=== PATIENT | female | born 1980 | race African-American/Black ===

== ENCOUNTER 2018-10-21 00:23 | Emergency (ER) | payer SELFPAY ==
[~2018-10-21] VITALS: Ht 172.7 cm; Wt 100.0 kg
[~2018-10-21 00:23] MED LIST: SERT50TA12 PO
[2018-10-21] MEDS ORDERED: DIPH25CA85 PO (00:56)
[2018-10-21] MEDS ORDERED: FAMO20TA32 PO (00:56)
[2018-10-21] MEDS ORDERED: PRED-572 PO (00:56)
[2018-10-21 02:49] VITALS: BP 138/88
== END 2018-10-21 03:12 | disposition home or self-care (01) ==
LOC: EDBD → EMS 00:24
DX: L50.9 Urticaria, unspecified (principal); J45.909 Unspecified asthma, uncomplicated; Z91.040 Latex allergy status

== ENCOUNTER 2019-01-30 13:34 | Emergency (ER) | payer OTHER ==
[~2019-01-30] VITALS: Ht 172.7 cm; Wt 109.1 kg
[~2019-01-30 13:34] MED LIST changes: +DIPH25CA85 PO; +FAMO20TA32 PO; +PRED-572 PO
[2019-01-30] MEDS ORDERED: KETOROLAC TROMETHAMINE 30 MG/ML VIAL IVP ONE (14:30)
[2019-01-30 15:32] LABS: BASOPHILS % (AUTO) 0.8 % (0.0-2.0); EOSINOPHILS % (AUTO) 1.9 % (1.0-6.0); HEMATOCRIT 34.8 % (36-46); HEMOGLOBIN 11.3 g/dL (12.0-16.0); LYMPHOCYTES % (AUTO) 31.1 % (22.0-44.0); MEAN CORPUSCULAR HEMOGLOBIN 26.7 pg (26.0-34.0); MEAN CORPUSCULAR HGB CONC 32.4 G/dL (31.0-37.0); MEAN CORPUSCULAR VOLUME 82 fL (80-100); MONOCYTES # (AUTO) 0.8 K/uL (0.1-1.0); MONOCYTES % (AUTO) 6.2 % (2.0-9.0); NEUTROPHILS # (AUTO) 7.8 K/uL (1.8-7.7); PLATELET COUNT (AUTO) 471 K/uL (150-450); RED BLOOD CELL COUNT(AUTO) 4.22 MIL/uL (4.00-5.20); RED CELL DISTRIBUTION WIDTH 13.1 % (11.5-14.5)
[2019-01-30 15:47] LABS: ANION GAP 8 mmol/L (8-16); CALCIUM, TOTAL 9.4 mg/dL (8.8-10.5); CARBON DIOXIDE 26 mmol/L (22-29); CHLORIDE 102 mmol/L (98-107); CREATININE 0.84 mg/dL (0.60-1.30); GLOMERULAR FILTR. RATE CALC > 60 mL/min (>60); GLUCOSE,RANDOM 77 mg/dL (70-110); POTASSIUM 4.1 mmol/L (3.5-5.1); SODIUM SERUM 136 mmol/L (136-145); UREA NITROGEN, BLOOD 7 mg/dL (7-18)
[2019-01-30 16:00] LABS: ALANINE AMINOTRANSFERASE 20 U/L (12-78); ALBUMIN 3.6 g/dL (3.4-5.0); ALKALINE PHOSPHATASE 68 U/L (46-116); ASPARTATE AMINOTRANSFERASE 14 U/L (15-37); BILIRUBIN,TOTAL 0.3 mg/dL (0.1-1.0); CREATINE KINASE, TOTAL ONLY 63 U/L (26-192); HCG,QUANTITATIVE 1 mIU/mL (0-6); TOTAL PROTEIN, SERUM 8.2 g/dL (6.4-8.2)
[2019-01-30] MEDS ORDERED: KETOROLAC TROMETHAMINE 30 MG/ML VIAL IM ONE (16:30)
[2019-01-30 17:18] VITALS: BP 121/74
== END 2019-01-30 17:23 | disposition home or self-care (01) ==
LOC: EMS 13:39
DX: R07.89 Other chest pain (principal); J45.909 Unspecified asthma, uncomplicated; Z79.899 Other long term (current) drug therapy; Z91.040 Latex allergy status
CPT/HCPCS: 36415; 71045; 80053; 82550; 84484; 84702; 85025; 93005; 96372; 99284; J1885

== ENCOUNTER 2022-08-26 03:35 | Emergency (ER) | payer OTHER ==
[~2022-08-26] VITALS: Ht 172.7 cm; Wt 98.6 kg
[~2022-08-26 03:35] MED LIST changes: +SERT-158 PO; -SERT50TA12 PO
[2022-08-26] MEDS ORDERED: HYDR-4584 PO (03:56)
[2022-08-26 04:18] VITALS: BP 107/41
[2022-08-26 04:25] LABS: APPEARANCE,URINE CLEAR (CLEAR); BILIRUBIN,URINE NEGATIVE (NEGATIVE); GLUCOSE, URINE (UA) NEGATIVE (NEGATIVE); KETONES,URINE NEGATIVE (NEGATIVE); LEUKOCYTE ESTERASE ,URINE NEGATIVE (NEGATIVE); NITRATE,URINE NEGATIVE (NEGATIVE); OCCULT BLOOD,URINE NEGATIVE (NEGATIVE); PH,URINE 5.5 (5.0-8.0); PROTEIN,URINE NEGATIVE (NEGATIVE); SPECIFIC GRAVITIY, URINE 1.008 (1.003-1.030); UROBILINOGEN,URINE <=1.0 mg/dL (<=1.0)
== END 2022-08-26 05:03 | disposition home or self-care (01) ==
LOC: EMS 03:35
DX: T16.2XXA Foreign body in left ear, initial encounter (principal); J45.909 Unspecified asthma, uncomplicated; Z98.890 Other specified postprocedural states; Z91.040 Latex allergy status; W45.8XXA Other foreign body or object entering through skin, initial encounter; Y93.89 Activity, other specified; Y92.89 Other specified places as the place of occurrence of the external cause; Y99.8 Other external cause status
CPT/HCPCS: 69200; 81003; 99284